=== PATIENT | male | born 1955 | race Caucasian/White ===

== ENCOUNTER 2019-06-09 12:51 | Observation (INO) | payer BC ==
[2019-06-09] MEDS ORDERED: Ondansetron 4 MG/2 ML SDV IVPUSH ONE (14:03)
[2019-06-09] MEDS ORDERED: HYDROmorphone 1 MG/ML Syringe IVPUSH ONE (14:27)
--- NOTE | 2019-06-09 15:44 | CRLCT ---
INDICATION: Trauma. TECHNIQUE: CT Head without contrast. COMPARISON: None FINDINGS: CSF spaces: No hydrocephalus. Brain parenchyma: The barriga-white differentiation is normal. No sign of mass, hemorrhage, or midline shift. Focal low attenuation in the left basal ganglia consistent with prior lacunar infarct versus dilated perivascular space. Skull base and calvarium: There is left periorbital and premaxillary soft tissue swelling/contusion. Possible nondisplaced acute fracture of the distal aspect of the nasal bone. There is soft tissue swelling overlying the distal aspect of the nasal bone with a small focus of subcutaneous gas suggesting laceration. There appears to be an old fracture of base of the right nasal bone. There is an air-fluid level in the sphenoid sinus. The remainder of the visualized paranasal sinuses and mastoid air cells are clear. IMPRESSION: 1. No acute intracranial abnormality. 2. Focal low attenuation in the left basal ganglia consistent with prior lacunar infarct versus dilated perivascular space. 3. Left periorbital and premaxillary soft tissue swelling/contusion. 4. Possible nondisplaced acute fracture of the distal aspect of the nasal bone. There is overlying soft tissue swelling and a small focus of subcutaneous gas suggesting laceration. 5. There appears to be an old fracture of the base of the right nasal bone. 6. Air-fluid level in the sphenoid sinus may reflect acute sinusitis or be posttraumatic. Dictated by Kristopher Alejandra MD @ 06/09/2019 3:43:00 PM Please note that all CT scans at this facility use dose modulation, iterative reconstruction, and/or weight-based dosing when appropriate to reduce radiation dose to as low as reasonably achievable. Dictated by: Kristopher Alejandra MD @ 06/09/2019 15:43:09 (Electronically Signed)
--- NOTE | 2019-06-09 15:44 | CRLCR ---
INDICATION: Pain TECHNIQUE: Single view chest. FINDINGS: The lungs are clear. The heart, mediastinum and pulmonary vessels are of normal size. There is no evidence of pleural disease. IMPRESSION: Negative chest. Dictated by Peyton Keys MD @ Jun 09 2019 3:41PM Signed by Dr. Peyton Keys @ Jun 09 2019 3:42PM
--- NOTE | 2019-06-09 15:50 | CRLCT ---
INDICATION: Trauma TECHNIQUE: CT cervical spine without contrast. COMPARISON: None FINDINGS: Vertebral alignment: Alignment is normal. Vertebrae: There are no fractures or suspicious bony lesions. Discs and facet joints: Mild multilevel loss of intervertebral disc space height most significant at C6-C7. Bilateral facet joint degenerative changes. Mild right neural foraminal narrowing C3-C4. Extraspinal findings: Small air-fluid level in the sphenoid sinus. Prevertebral soft tissues are normal. No acute abnormality in the lung apices. IMPRESSION: 1. No acute fracture or traumatic malalignment in the cervical spine. 2. Small air-fluid level in the sphenoid sinus may be posttraumatic or reflect acute sinusitis. Please note that all CT scans at this facility use dose modulation, iterative reconstruction, and/or weight-based dosing when appropriate to reduce radiation dose to as low as reasonably achievable. Dictated by Kristopher Alejandra MD @ Jun 09 2019 3:33PM Signed by Dr. Kristopher Alejandra @ Jun 09 2019 3:48PM
--- NOTE | 2019-06-09 16:11 | CRLCT ---
Indication: Trauma. Technique: Noncontrast CT facial bones. Coronal and sagittal reconstructions performed. 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 A slightly laterally displaced fracture the right anterior process of the maxilla is age-indeterminate but appears more likely chronic. Possible subtle nondisplaced fracture the tip of the nasal bone. There is overlying soft tissue swelling and a small focus of subcutaneous gas suggesting laceration. There is possible minimal asymmetric diastasis of the zygomaticomaxillary suture on the left (axial image 44). There is overlying left periorbital and left perimaxillary soft tissue swelling/contusion and this finding may be acute. There is no posttraumatic change in the left maxillary sinus to suggest that this represents acute fracture. Layering blood products in the sphenoid sinus with out associated sphenoid or skullbase fracture. No pneumocephalus. The frontal sinus, maxillary sinuses and mastoid air cells are clear. Minimal mucosal thickening in left ethmoid air cells. Impression: 1. Slightly laterally displaced fracture of the right anterior process of the maxilla is age-indeterminate but appears more likely chronic. 2. Possible subtle nondisplaced fracture of the tip of the nasal bone. There is overlying soft tissue swelling and a small focus of subcutaneous gas suggesting laceration. 3. Possible minimal asymmetric diastasis of the left zygomaticomaxillary suture. There is overlying left periorbital and pre maxillary/gabi-maxillary soft tissue swelling/contusion. Therefore this finding may be acute. However, there is no posttraumatic change in the left maxillary sinus to suggest that this represents acute fracture. It is indeterminate. 4. Layering blood products in the sphenoid sinus with out definite associated fracture. No pneumocephalus. 5. Chronic appearing hard palate defect which likely represents sequelae of cleft palate. Dictated by Kristopher Alejandra MD @ 06/09/2019 4:10:28 PM Please note that all CT scans at this facility use dose modulation, iterative reconstruction, and/or weight-based dosing when appropriate to reduce radiation dose to as low as reasonably achievable. Dictated by: Kristopher Alejandra MD @ 06/09/2019 16:10:43 (Electronically Signed)
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
[2019-06-09] MEDS ORDERED: Ketorolac 30 MG/ML SDV ONE (16:54)
[2019-06-09] MEDS ORDERED: Bacitracin Oint 1 GM U/D Packet TOP ONE (17:18)
[2019-06-09] MEDS ORDERED: Ketorolac 30 MG/ML SDV IVPUSH ONE (17:58)
[2019-06-09] MEDS ORDERED: Sodium Chloride 0.9% 1,000 ML IV SCH (18:45)
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
[2019-06-09] MEDS ORDERED: Ondansetron 4 MG/2 ML SDV IV PRN (19:30)
[2019-06-09] MEDS ORDERED: Ondansetron 4 MG Tab.DIS PO PRN (19:30)
[2019-06-09] MEDS ORDERED: LORazepam 2 MG/ML SDV IVPUSH PRN (19:30)
[2019-06-09] MEDS: Ibuprofen 600 MG Tab PO PRN (20:20)
[2019-06-09] MEDS: Acetaminophen 325 MG Tab PO PRN (22:39)
[2019-06-10] MEDS: Ibuprofen 600 MG Tab PO PRN (01:54)
[2019-06-10] MEDS: Acetaminophen 325 MG Tab PO PRN ×2 (01:59→07:27)
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
== END 2019-06-10 10:45 | disposition home or self-care (01) ==
LOC: JP.ED 12:51 → JP.MS 18:41
PROVIDERS: ADMIT Internal Medicine; ATTEND Internal Medicine
DX: R55 Syncope and collapse (principal); S01.21XA Laceration without foreign body of nose, initial encounter; I10 Essential (primary) hypertension; D72.829 Elevated white blood cell count, unspecified; V19.88XA Pedal cyclist (driver) (passenger) injured in other specified transport accidents, initial encounter; Z86.73 Personal history of transient ischemic attack (TIA), and cerebral infarction without residual deficits; Z79.82 Long term (current) use of aspirin; Z79.899 Other long term (current) drug therapy
CPT/HCPCS: 36415; 70450; 70486; 71045; 72125; 80048; 80053; 80305; 80320; 81001; 84484; 85025; 85027; 93005; 96374; 96375; 99285; A9270; J1170; J1885; J2001; J2405; J7030; 96361; G0378; G0480